=== PATIENT | female | born 1965 | race Caucasian/White ===

== ENCOUNTER → 2020-11-01 | Day surgery (SDC) | payer OTHER ==
[~2020-11-01] MED LIST: DIBUCAINE EXT; MVI PO; NORCO 5-325 TA1 EACH PO; ONDANSETRON ODT8 MG PO; [UNRECOGNIZED DRUG - OTHER] PO
[2020-11-01 09:30] LABS: ALBUMIN 4.2 g/dL (3.4-5.0); BILIRUBIN - TOTAL 0.7 mg/dL (0.2-1.0); CREATININE 0.75 mg/dL (0.51-0.95); GLOBULIN (CALCULATION) 3.5 g/dL; POTASSIUM 3.6 mmol/L (3.5-5.1); TOTAL PROTEIN 7.7 g/dL (6.4-8.2)
[2020-11-01 09:31] LABS: HCT 41.2 % (37.0-47.0); HGB 13.9 g/dl (12.5-16.0); MCH 32.8 pg (25.0-31.0); MCHC 33.7 g/dL (32.0-36.0); MCV 97.2 fL (78.0-100.0); MPV 9.5 fL (6.0-9.5); RBC 4.24 M/uL (4.20-5.40); RDW 12.1 % (11.5-14.0); WBC 6.3 K/uL (4.0-10.5)
== END | disposition home or self-care (01) ==
LOC: FAS 08:31
PROVIDERS: Surgery
DX: K60.3 Anal fistula (principal); Z88.0 Allergy status to penicillin; Z88.2 Allergy status to sulfonamides; Z88.8 Allergy status to other drugs, medicaments and biological substances
CPT/HCPCS: 36415; 80053; J2250; J2704; J3010; J7120

== ENCOUNTER 2021-03-17 10:19 | Emergency (ER) | payer OTHER ==
[2021-03-17 10:58] LABS: BASOPHIL 0.3 % (0-2); EOSINOPHIL 0 % (0-5); HCT 43.1 % (37.0-47.0); HGB 14.1 g/dl (12.5-16.0); LYMPHOCYTE 28.1 % (15-48); MCH 31.9 pg (25.0-31.0); MCHC 32.7 g/dL (32.0-36.0); MCV 97.5 fL (78.0-100.0); MONOCYTE 4.1 % (0-12); MPV 9.8 fL (6.0-9.5); NEUTROPHIL 67.2 % (41-80); NRBC 0; PLT 158 K/uL (150-400); RBC 4.42 M/uL (4.20-5.40); WBC 6.3 K/uL (4.0-10.5)
[2021-03-17 11:09] LABS: BUN/CREAT RATIO (CALC) 16.3 RATIO; CREATININE 0.86 mg/dL (0.51-0.95); POTASSIUM 4.5 mmol/L (3.5-5.1)
== END 2021-03-17 14:54 | disposition home or self-care (01) ==
LOC: FER 10:19
PROVIDERS: Internal Medicine
DX: I95.1 Orthostatic hypotension (principal); E86.0 Dehydration; U07.1 COVID-19; Z88.0 Allergy status to penicillin; Z88.2 Allergy status to sulfonamides
CPT/HCPCS: 36415; 80048; 84484; 85025; 93005; J7120

== ENCOUNTER → 2022-03-19 | Day surgery (SDC) | payer OTHER ==
[~2022-03-19] VITALS: Ht 157.5 cm; Wt 56.7 kg
[~2022-03-19] MED LIST changes: +BIOTIN1 MG PO; +TROKENDI XR50 MG PO; +VISTARIL25 MG PO; +WOMEN'S DAILY1 EAC1 PO
[2022-03-19 09:17] LABS: HCT 42.6 % (37.0-47.0); MCH 32.6 pg (25.0-31.0); MCHC 32.9 g/dL (32.0-36.0); MCV 99.1 fL (78.0-100.0); MPV 9.8 fL (6.0-9.5); RBC 4.3 M/uL (4.20-5.40); RDW 12.8 % (11.5-14.0); WBC 7.9 K/uL (4.0-10.5)
[2022-03-19 10:19] LABS: ALBUMIN 4.5 g/dL (3.4-5.0); BILIRUBIN - TOTAL 0.5 mg/dL (0.2-1.0); BUN/CREAT RATIO (CALC) 19.8 RATIO; CREATININE 0.81 mg/dL (0.51-0.95); GLOBULIN (CALCULATION) 3.4 g/dL; POTASSIUM 3.6 mmol/L (3.5-5.1); TOTAL PROTEIN 7.9 g/dL (6.4-8.2)
== END | disposition home or self-care (01) ==
LOC: FAS 08:07
PROVIDERS: Surgery
DX: K60.3 Anal fistula (principal)
CPT/HCPCS: 36415; 80053; J2250; J2704; J3010; J7120